=== PATIENT | female | born 1980 | race Caucasian/White ===

== ENCOUNTER 2017-04-23 18:42 | Emergency (ER) | payer OTHER | END 2017-04-23 19:15 | disposition home or self-care (01) | LOC: E/R 19:15 → FTE 18:42 | DX: K08.89 Other specified disorders of teeth and supporting structures (principal); J45.909 Unspecified asthma, uncomplicated | CPT/HCPCS: 99284; Z7502 ==

== ENCOUNTER 2017-04-27 22:02 | Emergency (ER) | payer OTHER ==
[2017-04-28] MEDS: HYDROCODONE/APAP (10/325) TAB PO (02:06)
== END 2017-04-28 02:20 | disposition home or self-care (01) ==
LOC: FTE 22:02
DX: S02.5XXB Fracture of tooth (traumatic), initial encounter for open fracture (principal); J45.909 Unspecified asthma, uncomplicated; X58.XXXA Exposure to other specified factors, initial encounter; Y92.9 Unspecified place or not applicable
CPT/HCPCS: 99283; Z7502

== ENCOUNTER 2017-08-30 16:45 | Emergency (ER) | payer OTHER ==
[2017-08-30 18:15] LABS: URINE BLOOD (Dip) POC Negative (NEGATIVE); URINE GLUCOSE (Dip) POC Negative (NEGATIVE); URINE KETONES (Dip) POC Negative (NEGATIVE); URINE LEUKOCYTE EST (Dip) POC Negative (NEGATIVE); URINE NITRITE (Dip) POC Negative (NEGATIVE); URINE TOTAL PROTEIN POC Negative (NEGATIVE)
[2017-08-30 18:15] LABS: URINE PH (Dip) POC 5.5 (5.0-8.5)
[2017-08-30] MEDS: IBUPROFEN 600 MG TAB PO (18:16)
== END 2017-08-30 18:51 | disposition home or self-care (01) ==
LOC: FTE 16:45
DX: R10.2 Pelvic and perineal pain (principal); J45.909 Unspecified asthma, uncomplicated
CPT/HCPCS: 76775; 76856; 81003; 81025; 99285-25

== ENCOUNTER 2017-10-10 09:10 | Emergency (ER) | payer OTHER ==
[2017-10-10] MEDS: IBUPROFEN 800 MG TAB PO (09:49)
[2017-10-10] MEDS: LIDOCAINE 1% (MDV) 10 ML INJ INJ (10:17)
== END 2017-10-10 11:05 | disposition home or self-care (01) ==
LOC: FTE 09:10
DX: L02.411 Cutaneous abscess of right axilla (principal); J45.909 Unspecified asthma, uncomplicated
CPT/HCPCS: 10061; 99284-25

== ENCOUNTER 2017-10-12 07:33 | Emergency (ER) | payer OTHER | END 2017-10-12 08:50 | disposition home or self-care (01) | LOC: FTE 07:33 | DX: Z48.01 Encounter for change or removal of surgical wound dressing (principal); J45.909 Unspecified asthma, uncomplicated | CPT/HCPCS: 99281 ==

== ENCOUNTER 2018-06-10 13:25 | Emergency (ER) | payer OTHER | END 2018-06-10 14:52 | disposition home or self-care (01) | LOC: FTE 13:25 | DX: H00.012 Hordeolum externum right lower eyelid (principal); J45.909 Unspecified asthma, uncomplicated | CPT/HCPCS: 67700; 99283-25 ==